=== PATIENT | female | born 1945 | race Caucasian/White ===

== ENCOUNTER 2025-04-23 09:20 | Day surgery (SDC) | payer MEDICARE, OTHER ==
[2025-04-23] MEDS ORDERED: Propofol 200 MG/20 ML SDV ONE (10:20)
[2025-04-23] MEDS ORDERED: fentaNYL 50 MCG/ML SDV ONE (10:20)
[2025-04-23] MEDS: Lactated Ringers 1,000 ML IV SCH (10:25)
== END 2025-04-23 12:17 | disposition home or self-care (01) ==
LOC: JP.SDS 09:20
PROVIDERS: ATTEND Surgery
DX: Z12.11 Encounter for screening for malignant neoplasm of colon (principal); K57.30 Diverticulosis of large intestine without perforation or abscess without bleeding; K63.5 Polyp of colon; E78.5 Hyperlipidemia, unspecified; I10 Essential (primary) hypertension; Z86.0100 Personal history of colon polyps, unspecified; Z79.899 Other long term (current) drug therapy
CPT/HCPCS: 00812; G0121; J2704; J3010; J7120